=== PATIENT | male | born 1975 | race African-American/Black ===

== ENCOUNTER 2022-04-11 07:54 | Inpatient (IN) | payer OTHER ==
[2022-04-11] VITALS (19 sets, daily range): BP systolic 106–145; BP diastolic 67–95
[~2022-04-11] VITALS: Ht 172.7 cm; Wt 83.0 kg
--- NOTE | 2022-04-11 08:05 | NUR ---
PT ESCORTED VIA EMS STRETCHER TO ROOM 9 FOR EVAL OF ABD PAIN
[2022-04-11 08:17] LABS: HEMATOCRIT 49.9 % (39.0-50.0); HEMOGLOBIN 16.5 g/dl (14.0-18.0); IMMATURE GRANULOCYTES 0.1 % (0.0-5.0); MEAN CELL VOLUME 89.9 fL CALC (80.0-100.0); MEAN CORPUSCULAR HGB 29.7 pG CALC (26.0-32.0); MEAN CORPUSCULAR HGB CONC 33.1 g/dL CAL (32.0-36.0); NEUT# 8.23 thou/uL (1.82-7.42); RED BLOOD COUNT 5.55 mill/uL (4.70-6.10); RED CELL DISTRI WIDTH 12.6 % (11.5-15.5)
[2022-04-11 08:28] LABS: ALBUMIN 4.9 g/dL (3.2-5.0); ALKALINE PHOSPHATASE 78 u/l (38-126); ANION GAP 16 (6-22 (CALC)); BILIRUBIN, TOTAL 0.7 mg/dL (0.0-1.4); BUN 23 mg/dL (9-20); BUN/CREATININE RATIO 19 (12-20 (CALC)); CARBON DIOXIDE 25 mmol/l (22-30); CHLORIDE 104 mmol/l (95-108); CREATININE 1.2 mg/dL (0.7-1.3); GFR FOR AFR.AMER. > 60 ML/MIN (>=60 (CALC)); GFR OTHER RACES > 60 ML/MIN (>=60 (CALC)); LIPASE 58 u/l (23-300); POTASSIUM 4.6 mmol/l (3.5-5.1); SGOT/AST 20 u/l (17-59); SODIUM 139 mmol/l (137-146); TOTAL PROTEIN 7.8 g/dL (6.3-8.2)
--- NOTE | 2022-04-11 09:54 | NUR ---
Reassessment of patient completed. No distress noted.
--- NOTE | 2022-04-11 10:36 | NUR ---
REPORT PROVIDED BY ER NURSE. PT RESTING IN LOW FOWLERS POSITION. ASSESSMENT AND VS COMPLETED.HEART RHYTHM NORMAL TELE IN PLACE. RESPIRATIONS EVEN AND UNLABORED. BOWEL SOUNDS HYPOACTIVE. PT STATES ABDOMEN TENDER. PAIN MEDICATIONS DID HELP. PT REQUESTED ICE CHIPS . CALLED DR. BRADLEY . FOR VERIFICATION. ICE CHIPS PROVIDED. IV SITE RAC PATENT INFUSING WITH [id number] . EMS SITE. NPO DIET. PT DENIES OPEN WOUNDS. ALL SAFETY PRECAUTIONS IN PLACE WITH CALL LIGHT IN REACH. NICOLE IN ROOM AT PT BEDSIDE.
--- NOTE | 2022-04-11 10:37 | NUR ---
BEDSIDE REPORT GIVEN TO BECKY BERNAL
--- NOTE | 2022-04-11 12:00 | NUR ---
NG TUBE INSERTED BY DR BRADLEY PT TO HAVE PROCEDURE DONE. ALL SAFETY PRECAUTIONS IN PLACE.
--- NOTE | 2022-04-11 13:41 | NUR ---
PT LEFT FLOOR VIA STRETCHER FOR OR PROCEDURE. CONSENT OBTAINED.
--- NOTE | 2022-04-11 16:37 | NUR ---
PT YET TO ARRIVE FROM OR
--- NOTE | 2022-04-11 18:14 | NUR ---
PT RETURNED FROM OR VIA STRECTCHER . PT AWAKE NO SIGNS OF DISTRESS. ASSESSMENT AND POST OP VITAL SIGNS STARTED. HEART RHYTHM NORMAL WITH TELE IN PLACE. RESPIRATIONS EVEN AND UNLABORED.ON 2L OXYGEN BOWEL SOUNDS UNABLE TO ASSESS DUE TO ABD DRESSING IN PLACE CDI. PT NPO.ICE CHIPS ONLY. IV SITE TO RAC 18G INFUSING WITH LRS . TO DISCONTINUE. SCDS IN PLACE. URINARY CATHER 16F. IN PLACE NOTED. NG TUBE IN PLACE . ZOSYN TO BE PROVIDED.
--- NOTE | 2022-04-11 19:50 | NUR ---
PATIENT IN BED AWAKE BREATHING EVEN AND UNLABORED. PATIENT A&O X3 ABLE TO MAKE NEED KNOW. PATIENT ACCOMPANIED BY GUARDS AND HAND CUFF TO BED. PATIEND HAS A NG TUBE ON LCS, GREEN DRAINAGE NOTED. PT HAS A 18G IV TO RAC PATENT AND FLUSHING WELL. PATENT HAS A BENITEZ CATHETER 16FR SMALL AMOUNT OF URINE NOTED. ASSESSMENT COMPLETED. ABD DRESSING IN PLACE AND WITH A BINBER. SCD IN PLACE. CONTINUE TO MONITOR.
[2022-04-12] VITALS (7 sets, daily range): BP systolic 115–136; BP diastolic 57–72
--- NOTE | 2022-04-12 00:50 | NUR ---
PATINET IN BED RESTING WITH EYES CLSED BREATHING EVEN AND UNLABORED. PATIENT ACCOPANIED BY GUARDS, AND MARLENE CUFF TO BED. PATIENT REPORT PAIN TO ABD 5/10, PATIENT MEDICATED PER MAR. CALL LIGHT IN REACH BED INLOWEST POSITION. CONTINUE TO MONITOR.
--- NOTE | 2022-04-12 04:20 | NUR ---
PATIENT IN BED RESTING WITH EYES CLOSED BREATHING EVEN AND UNLABORED. PATIENT ACCOMPANIED BY GUARDS AND HAND CUFF TO BED. PATIENT REPORT ABDOMINAL PAIN /. ICE PACK APPLYED. CALL LIGHT IN REACH. AND BED IN LOWEST POSITION. CONTINUE TO MINITOR.
[2022-04-12 05:01] LABS: URINE BILIRUBIN - DIPSTICK NEGATIVE (NEGATIVE); URINE BLOOD DIPSTICK SMALL (NEGATIVE); URINE COLOR YELLOW; URINE GLUCOSE - DIPSTICK NEGATIVE (NEGATIVE); URINE KETONE TRACE mg/dL (NEGATIVE); URINE LEUK ESTERASE NEGATIVE (NEGATIVE); URINE PH 5.5 (4.5-8.0); URINE PROTEIN - DIPSTICK TRACE mg/dL (NEG-TRACE); URINE SPECIFIC GRAVITY >=1.030; URINE UROBILINOGEN - DIPSTICK 0.2 E.U./dL (0.2)
[2022-04-12 05:05] LABS: URINE NITRITE - DIPSTICK NEGATIVE (Negative)
[2022-04-12 05:07] LABS: HEMOGLOBIN 15.4 g/dl (14.0-18.0); MEAN CELL VOLUME 91.4 fL CALC (80.0-100.0); MEAN CORPUSCULAR HGB 29.3 pG CALC (26.0-32.0); MEAN CORPUSCULAR HGB CONC 32.1 g/dL CAL (32.0-36.0); NEUT# 3.17 thou/uL (1.82-7.42); RED BLOOD COUNT 5.25 mill/uL (4.70-6.10)
[2022-04-12 05:19] LABS: URINE MUCUS FEW hpf (NONE-FEW); URINE SQUAMOUS EPITHELIAL CELL FEW EPI/hpf (0-FEW)
[2022-04-12 05:30] LABS: ALKALINE PHOSPHATASE 50 u/l (38-126); ANION GAP 10 (6-22 (CALC)); BILIRUBIN, TOTAL 0.8 mg/dL (0.0-1.4); BUN 20 mg/dL (9-20); BUN/CREATININE RATIO 15 (12-20 (CALC)); CARBON DIOXIDE 24 mmol/l (22-30); CHLORIDE 108 mmol/l (95-108); CREATININE 1.3 mg/dL (0.7-1.3); GFR FOR AFR.AMER. > 60 ML/MIN (>=60 (CALC)); GFR OTHER RACES 59 ML/MIN (>=60 (CALC)); POTASSIUM 4.5 mmol/l (3.5-5.1); SGOT/AST 20 u/l (17-59); SODIUM 137 mmol/l (137-146)
[2022-04-12 05:39] LABS: ALBUMIN 3.2 g/dL (3.2-5.0); TOTAL PROTEIN 5.6 g/dL (6.3-8.2)
--- NOTE | 2022-04-12 07:00 | NUR ---
PT REPORT RECIEVED FROM COMPUTING TUTOR
--- NOTE | 2022-04-12 08:40 | NUR ---
PT RESTING IN LOW FOWLERS POSITION. ASSESSMENT AND VS COMPLETED. A/OX3 HEART RHYTHM NORMAL . RESPIRAITONS UNLABORED. BOWEL SOUNDS HYPOACTIVE. PT NPO ONLY ICE CHIPS . NO PAIN MED ADMINISTED. IV SITE NOTED TO BE CHANGED. ABD DRESSING CDI. 450 NG OUTPUT . PT DENIES ADDITIONAL NEEDS OTHER THAN ICE CHIPS .
--- NOTE | 2022-04-12 12:45 | NUR ---
PT IV DUE TO BE CHANGED . ALL SAFETY PRECAUTIONS IN PLACE PT ZOSYN TO BE GIVEN AFTER IV CHANGED
--- NOTE | 2022-04-12 14:56 | NUR ---
PT RESTING IN HIGH FOWLERS POSITION PT ABLE TO TOLERATE A FEW STEPS PT ABLE TO USE IS . PT DENIES PAIN MEDICATION AT THE MOMENT ALL SAFETY PRECAUTIONS IN PLACE.
--- NOTE | 2022-04-12 16:08 | NUR ---
PT RESTING IN SEMI FOWLERS POSITION. RESPIRATIONS EVEN UNLABORED. PT DENIES ADDITONAL NEEDS AT THE TIME.
--- NOTE | 2022-04-12 20:45 | NUR ---
PATINET IN BED WATCHING TV RESPIRATION EVEN AND UNLABORED. PATIENT ACCOMPANIED BY GUARDS AND HAND CUFF TO BED. PATIENT REPORT ABD DISCOMFORT. ASSESMENT COMPLETED. PATIENT MOVE TO ROOM 269 DUE TO AC MALFUNCION. PATIENT NG TUBE GREEN DRAINAGE NOTED. PATIENT HAS A BENITEZ CATHETER DRAINAGING WELL. CALL LIGHT IN REACH AND BED IIN LOWEST POSITION. CONTINUE TO MONITOR.
[2022-04-13] VITALS (7 sets, daily range): BP systolic 118–147; BP diastolic 76–99
--- NOTE | 2022-04-13 00:20 | NUR ---
PATIENT IN BED RESTING BREATHING EVEN AND UNLABORED. TEMP OF 101 NOTED AND ELEVETED PULSE [address] YEUNG NOTIFIED AND ORDER NS 1000 ML/H. PATIENT MEDICATED FOR PAIN. CALL LIGHT IN REACH BED IN LOWEST POSITION.
--- NOTE | 2022-04-13 04:26 | NUR ---
PATIENT IN BED RESTING WITH EYES CLOSED BREATHING EVEN AN UNLABORED. NO S/S OF DISTRESS NOTED. CALL LIGHT IN REACH. BED IN LOWEST POSITION.
--- NOTE | 2022-04-13 08:15 | NUR ---
PT RESTING WITH EYES CLOSED; A&OX3. EVEN AND UNLABORED RESPIRATIONS; CLEAR LUNG SOUNDS UPON AUSCULTATION. NG TUBE IN PLACE; LOW CONTINUOUS SUCTION WITH GREEN DRAINAGE NOTED. HYPOACTIVE BOWEL SOUNDS X 4 QUADRANTS. ABD DRESSING; CDI, ABDOMINAL BINDER IN PLACE. BENITEZ IN PLACE; TO GRAVITY WITH EVANGELINA, CLEAR, URINE. IV SITE HEALTHY AND PATENT. ICE CHIPS PROVIDED PER PT'S REQUEST. SAFETY PRECAUTIONS IN PLACE WITH CALL LIGHT IN REACH.
--- NOTE | 2022-04-13 12:00 | NUR ---
PT IN BED. ABD DRESSING CHANGED AT THIS TIME; MIDLINE INCISION WITH 22 PORTIA, PLUS 2 PORTIA ON LEFT UPPER QUADRANT, NO DRAINAGE. ABDOMINAL BINDER IN PLACE. NG TUBE IN PLACE; LOW CONTINUOUS SUCTION, WITH GREEN DRAINAGE. SAFETY PRECAUTIONS IN PLACE WITH CALL LIGHT IN REACH.
--- NOTE | 2022-04-13 17:03 | NUR ---
REPLACED TAPE THAT WAS HOLDING NG TUBE TO NOSE, SINCE IT WAS COMING OFF. NG TUBE IN PLACE; LOW CONTINUOUS SUCTION WITH GREEN DRAINAGE. ICE CHIPS PROVIDED PER PT'S REQUEST. NO DISTRESS NOTED. PT DENIES PAIN AT THE MOMENT. SAFETY PRECAUTIONS IN PLACE WITH CALL LIGHT IN REACH.
--- NOTE | 2022-04-13 17:17 | NUR ---
PT'S TEMP 99.7; DR BRADLEY NOTIFIED, NO NEW ORDERS AT THE MOMENT.
--- NOTE | 2022-04-13 19:10 | NUR ---
REPORT RECEIVED FROM Gerson MATHEWS RN.
--- NOTE | 2022-04-13 21:00 | NUR ---
PATIENT ASSEMENT COMPLETED AT THIS TIME. PATIENT DRESSING REMAIS CDI. NG TUBE IN RIGHT NARE ON LOW CONTINOUS, CURRENTLY 125 CC. BENITEZ DRAINING TO GRAVITY, GUARDS AT BEDSIDE. CALL LIGHT AND BEDSIDE TABLE WITHIN REACH.
[2022-04-14] VITALS (7 sets, daily range): BP systolic 122–164; BP diastolic 81–111
--- NOTE | 2022-04-14 | NUR ---
GRACE TMEDICATED WITH SCHEULED TORADOL
--- NOTE | 2022-04-14 05:00 | NUR ---
PATIENT STATES HE PASSED GAS AT 236
--- NOTE | 2022-04-14 05:28 | NUR ---
GUARDS PERFORMING SHIFT CHANGE AT THIS TIME.
--- NOTE | 2022-04-14 05:28 | NUR ---
PATIENT ENCOURGAED TO WALK AND MOVE AROUND, STATES HE IS IN TOO MUCH PAIN.
[2022-04-14 05:30] LABS: HEMATOCRIT 43.1 % (39.0-50.0); HEMOGLOBIN 13.9 g/dl (14.0-18.0); IMMATURE GRANULOCYTES 0.2 % (0.0-5.0); MEAN CELL VOLUME 92.1 fL CALC (80.0-100.0); MEAN CORPUSCULAR HGB 29.7 pG CALC (26.0-32.0); MEAN CORPUSCULAR HGB CONC 32.3 g/dL CAL (32.0-36.0); NEUT# 4.1 thou/uL (1.82-7.42); RED BLOOD COUNT 4.68 mill/uL (4.70-6.10); RED CELL DISTRI WIDTH 13.1 % (11.5-15.5)
[2022-04-14 05:39] LABS: ANION GAP 8 (6-22 (CALC)); BUN 21 mg/dL (9-20); BUN/CREATININE RATIO 15 (12-20 (CALC)); CARBON DIOXIDE 28 mmol/l (22-30); CHLORIDE 105 mmol/l (95-108); CREATININE 1.5 mg/dL (0.7-1.3); GFR FOR AFR.AMER. > 60 ML/MIN (>=60 (CALC)); GFR OTHER RACES 50 ML/MIN (>=60 (CALC)); SODIUM 138 mmol/l (137-146)
--- NOTE | 2022-04-14 06:01 | NUR ---
PATIENT NG TUBE BECOME DISLODGED, RE INSERTED NG TUBE. 125CC AT BEGINING OF SHIFT CURRENTYTLY 700 CC
--- NOTE | 2022-04-14 06:50 | NUR ---
RECEIVED REPORT FROM BECKY FAUSTIN.
--- NOTE | 2022-04-14 08:20 | NUR ---
PT SITTING ON LOW DUNN'S; A&O X3. EVEN AND UNLABORED RESPIRTATIONS. TELEMETRY IN PLACE WITH LAST READING SR-90. IV SITE HEALTHY AND PATENT. ACTIVE BOWEL SOUNDS X4 QUADRANTS. ABDOMINAL DRESSING CDI. ABDOMINAL BINDER IN PLACE. SCD'S IN PLACE. NO DISTRESS NOTED. THERE ARE TWO GUARDS AT PT'S BEDSIDE. PT WITH SHACKLES CHAIN FROM FEET TO BED. SAFETY PRECAUTIONS IN PLACE WITH CALL LIGHT IN REACH.
--- NOTE | 2022-04-14 12:35 | NUR ---
PT'S DIET CHANGED FROM NPO TO CLEAR LIQUID DIET; PT INFORMED OF SAME. PT SITTING ON BED; HAVING LUNCH. NO DISTRESS OR PAIN NOTED. SAFETY PRECAUTIONS IN PLACE WITH CALL LIGHT IN REACH.
--- NOTE | 2022-04-14 13:41 | NUR ---
PT ASSITED TO BATHROOM; MODERATE BM, FORMED, BROWN STOOL. PT BACK IN BED. SAFETY PRECAUTIONS IN PLACE WITH CALL LIGHT IN REACH.
--- NOTE | 2022-04-14 17:26 | NUR ---
PT ASSISTED TO BATHROOM. PT BACK IN BED. NEW BAG OF IV FLUIDS HANGING. CHANGED BINDER. SAFETY PRECAUTIONS IN PLACE WITH CALL LIGHT IN PLACE.
--- NOTE | 2022-04-14 18:30 | NUR ---
AIDE INFORMED SPECIALTY FINISHING UTILITY PERSON, PT HAD AN EMESIS X1 EPISODE; DR. TENA NOTIFIED OF SAME. DR. BRADLEY ORDERED TO UNCLAMP NG TUBE AND PUT IT BACK TO LOW CONTINUOUS SUCTION, AND ADMINISTER ZOFRAN FOR NAUSEA.
--- NOTE | 2022-04-14 18:38 | NUR ---
PT SITTING ON BED; HOLDING EMESIS BAG WITH [address] CONTENTS. EXPLAINED PT DR'S ORDERS TO UNCLAMP NG TUBE AND LOW SUCTION. COMMUNICATIONS BILLING ANALYST NOTED NG TUBE ON PT'S RIGHT HAND; PT ADMITTED HE PULL NG TUBE OUT BECAUSE IT WAS BOTHERING HIM. DR. BRADLEY NOTIFIED OF SAME, AND THAT PT'S TEMP WAS 100.4; DR ORDERED TO GIVE PT ICE CHIPS AND ADMINISTER TYLENOL 650 MG PO Q6HR PRN FOR FEVER. ADMINISTERED ZOFRAN PER EMAR. SAFETY PRECAUTIONS IN PLACE WITH CALL LIGHT IN REACH.
--- NOTE | 2022-04-14 19:25 | NUR ---
REPORT RECEIVED FROM Gerson MATHEWS LPN
--- NOTE | 2022-04-14 20:30 | NUR ---
EDUCATED PATIENT ON IMPORTANCE OF WALKING SUGGESTED TO WALK OUT IN THW HALLWAYS, GUARDS AT BEDSIDE STATED THAT IF HE WERE TO HAVE TO LEAVE THE ROOM HE WOULD HAVE TO GET PERMISION GRANTED FROM [employer].
--- NOTE | 2022-04-14 22:21 | NUR ---
HR UP TO 125, VITALS TAKEN AT THIS TIME. PATIENT TO BE MEDICATED FOR 100.1 TEMPERATURE.
--- NOTE | 2022-04-14 22:53 | NUR ---
EMESIS X2 NOTED. NO MORE THAN 200 CC IN BOTH BAGS COMBINED.
--- NOTE | 2022-04-14 22:58 | NUR ---
NOTIFIED DR BRADLEY. PER REINSERT NG TUBE AND 1000 CC NORMAL SALINE BOLUS.
--- NOTE | 2022-04-14 23:30 | NUR ---
NG TUBE PLACED AT THIS TIME, GASTRIC CONTENTS ASPIRATED, PLACED TO LOW CONTINOUS SUCCION. 450 CC OUT AT THIS TIME.
[2022-04-15 00:24] VITALS: BP 126/67
--- NOTE | 2022-04-15 00:42 | NUR ---
NEW CANNISTER, PREVIOUS CANNIESTER FILLED TO BRIM AT 1200 CC
--- NOTE | 2022-04-15 01:05 | NUR ---
NG CLAMP ATTEMPTED AT THIS TIME. PATIENT UNABLE TO TOLERATE MORE THAN 1 MINUTES. RECCONECTED TO LOW SUCCION 100CC OUT AND CONTINUES TO DRAIN TO SUCCION.
--- NOTE | 2022-04-15 01:35 | NUR ---
NG TUBE CONTINUES TO LOW SUCCION, 750CC NOTED AT THIS TIME
--- NOTE | 2022-04-15 01:48 | NUR ---
NEW BAG OF FLUIDS HUNG AT THIS TIME, SEE EMAR.
--- NOTE | 2022-04-15 03:32 | NUR ---
PATIENT WALKED APPROXIMATELTY 3 TIMES AROUND BED, ABOUT 30 FEET. STILL RELUCTANT TO WALK IN HALLWAY.
--- NOTE | 2022-04-15 04:00 | NUR ---
NG TUBE CLAMPED AT THIS TIME
[2022-04-15 04:49] VITALS: BP 121/86
[2022-04-15 06:07] VITALS: BP 121/80
[2022-04-15 06:09] LABS: HEMATOCRIT 41.8 % (39.0-50.0); HEMOGLOBIN 13.3 g/dl (14.0-18.0); MEAN CELL VOLUME 92.1 fL CALC (80.0-100.0); MEAN CORPUSCULAR HGB 29.3 pG CALC (26.0-32.0); MEAN CORPUSCULAR HGB CONC 31.8 g/dL CAL (32.0-36.0); RED BLOOD COUNT 4.54 mill/uL (4.70-6.10); RED CELL DISTRI WIDTH 13.4 % (11.5-15.5)
[2022-04-15 06:26] LABS: ANION GAP 10 (6-22 (CALC)); BUN 17 mg/dL (9-20); BUN/CREATININE RATIO 12 (12-20 (CALC)); CARBON DIOXIDE 24 mmol/l (22-30); CHLORIDE 108 mmol/l (95-108); CREATININE 1.5 mg/dL (0.7-1.3); GFR FOR AFR.AMER. > 60 ML/MIN (>=60 (CALC)); GFR OTHER RACES 50 ML/MIN (>=60 (CALC)); MAGNESIUM 2.3 mg/dL (1.6-2.3); POTASSIUM 4.1 mmol/l (3.5-5.1); SODIUM 138 mmol/l (137-146)
[2022-04-15 06:27] VITALS: BP 121/80
--- NOTE | 2022-04-15 07:00 | NUR ---
NG TUBE REMAINS CLAMPED
--- NOTE | 2022-04-15 08:01 | NUR ---
SHIFT CHANGE REPORT, PT AWAKE ALERT AND ORIENTED RESTING IN BED, DENIES PAIN OR NAUSEA, TELE MONITOR IN PLACE, NIG TUBE IN PLACE TO RN CLAMPED, DRESSING TO ABD REMOVED WITH PURULENT DRAINAGE TO DISTAL END, PORTIA INTACT, NEW DSD APPLIED AND SECURED WITH PAPER TAPE, BENITEZ IN PLACE WITH PINK URINE, RE-EDUCATED ON USE OF IS AND PT DEMONSTRATED CORRECT USE AFTER INACCURATE USAGE. CALL ROSALES IN REACH AND BED LOCKED IN LOWEST POSITION, GUARDS X [address]
--- NOTE | 2022-04-15 11:15 | NUR ---
MIDLINE INCISION TO ABD WITH BLOODY PURULENT DRAINAGE AT THIS TIME, BOTH MIDDLE AND DISTAL END OF INCISION WITH COPIOUS AMT DRAINAGE TO MIDDLE AND MODERATE AMOUNT TO DISTAL, DRESSING CHANGED AGAIN FOR SECOND TIME THIS AM, WILL CONTACT SURGEON TO NOTIFY OF CONDITION.
--- NOTE | 2022-04-15 12:16 | NUR ---
DR BRADLEY HERE ROUNDING, ADVANCED NG FURTHER IN STOMACH AFTER REVIEWING IMAGING, ASSESSED INCISION AND REMOVED 2 PORTIA, PACKED SITE WITH DRY CHARO THEN NURSE REAPPIED DSD AND SECURED WITH PAPER TAPE ORDERED. MD ADVISED NOT TO REMOVE BENITEZ CATHETER YET.
[2022-04-15 15:52] VITALS: BP 140/78
--- NOTE | 2022-04-15 17:00 | NUR ---
DRESSING TO ABD CHANGED PER ORDER @ 1700, PT TOLERATED WELL.
--- NOTE | 2022-04-15 18:07 | NUR ---
PT C/O SEVERE ABD PAIN, COUGHING AND HEAVING, NURSE OFFERED ANTIEMETIC AND ANALGESIC MED BUT ON ARRIVAL TO ROOM WITH MED PT REPORTED HE HAD SOME PHLEGM IN HIS THROAT WHICH HE WAS ABLE TO EXPECTORATE AND WAS FEELING BETTER; THEREFORE REFUSED MEDS, WILL CONTINUE TO MONITOR.
--- NOTE | 2022-04-15 19:00 | NUR ---
ASSISTED OUT OF BED TO AMBULATED IN ROOM. NG TUBE CLAMPED. ACTIVITY TOLERATED WELL DENIES NAUSEA OR VOMITING. NO SOB NOTED ABD WITH BINDER ON INTACT.
[2022-04-15 19:09] VITALS: BP 137/83
--- NOTE | 2022-04-15 21:35 | NUR ---
COMPLAIN OF DULL ACHING ABDOMINAL PAIN. NG TUBE DRAINAGE COFFEE COLORED 450 CC NOTED IN CANISTER. MEDICATED WITH DILAUDID 1 MG SANCHEZ 7 OUT OF 10 ON PAIN SCALE ZOFRAN 4MG GIVEN TO RELIEVE NAUSEA.
[2022-04-16] VITALS (9 sets, daily range): BP systolic 113–147; BP diastolic 71–94
--- NOTE | 2022-04-16 04:13 | NUR ---
REMEDICATED WITH DILAUDED FOR 8 OUT OF 10 PAIN. ABDOMENN DRSG DRY AND INTACT. RESPIRATIONS EVEN AND UNLABORED. TOTAL OF 1100 CC NG TUBE DRAINAGE RECORDED FOR THIS SHIFT.
[2022-04-16 05:30] LABS: HEMATOCRIT 38.6 % (39.0-50.0); HEMOGLOBIN 12.6 g/dl (14.0-18.0); IMMATURE GRANULOCYTES 0.5 % (0.0-5.0); MEAN CELL VOLUME 90.2 fL CALC (80.0-100.0); MEAN CORPUSCULAR HGB 29.4 pG CALC (26.0-32.0); MEAN CORPUSCULAR HGB CONC 32.6 g/dL CAL (32.0-36.0); NEUT# 4.43 thou/uL (1.82-7.42); RED BLOOD COUNT 4.28 mill/uL (4.70-6.10); RED CELL DISTRI WIDTH 13.3 % (11.5-15.5)
[2022-04-16 05:52] LABS: ANION GAP 8 (6-22 (CALC)); BUN 15 mg/dL (9-20); BUN/CREATININE RATIO 11 (12-20 (CALC)); CARBON DIOXIDE 24 mmol/l (22-30); CHLORIDE 110 mmol/l (95-108); CREATININE 1.4 mg/dL (0.7-1.3); GFR FOR AFR.AMER. > 60 ML/MIN (>=60 (CALC)); GFR OTHER RACES 55 ML/MIN (>=60 (CALC)); POTASSIUM 4.2 mmol/l (3.5-5.1); SODIUM 138 mmol/l (137-146)
--- NOTE | 2022-04-16 05:57 | NUR ---
RESTING QUIETLY IN BED WITH EYES CLOSED NO DISTRESS NOTED. RESPIRATIONS EVEN AND UNLABORED CORECCTION OFFICERS AT BEDSIDE SHACKLES IN PLACE.
--- NOTE | 2022-04-16 07:00 | NUR ---
RECIEVE REPORT FROM FATOUMATA PENA.
--- NOTE | 2022-04-16 07:00 | NUR ---
REIVE REPORT FROM FATOUMATA PENA.
--- NOTE | 2022-04-16 08:00 | NUR ---
PATIENT ALERT AND ORIENTED X3. PATIENT REFER PAIN AT THIS TIME. PAIN MANAGEMENT WITH HER THIS MORNING. PATIENT IS EDUCATED ABOUD MEDICATIONS AND NURSING PLAN. PATIENT REFER UNDERSTAND.
--- NOTE | 2022-04-16 09:00 | NUR ---
CHANGED ABDOMINAL DRESSING. CLEAN THE NOSE AREA. CHANGED DRESSING OVER NOSE. PATIENT TOLERATED WELL.
--- NOTE | 2022-04-16 12:00 | NUR ---
PATIENT RESTING IN BED STABLE AT THIS TIME.
--- NOTE | 2022-04-16 16:40 | NUR ---
PATIENT STABLE RESTING IN BED.
--- NOTE | 2022-04-16 19:00 | NUR ---
REPORT RECEIVED FROM Willie CORDERO RN
--- NOTE | 2022-04-16 19:49 | NUR ---
PATIENT UNCLAMPPED, AND UP TO THE BATHROOM WITH ASSITANCE PROVIDED BY Lolita SOLER CNA.
[2022-04-17] VITALS (8 sets, daily range): BP systolic 125–155; BP diastolic 76–93
--- NOTE | 2022-04-17 00:35 | NUR ---
PATIENT UP TO THE BATHROOM AT THIS TIME. BM PROVICED. ANTIBIOTIC HUNG AT THIS TIME. PATIENT MEDICATED FOR PAIN 05/03. NG TUBE TO LOW SUCCION, ABOUT 600CC OF CLEAR GREEN LIQUID.
--- NOTE | 2022-04-17 04:00 | NUR ---
GENEVA REQUESTING ICE CHIPS, ICE CHIPS PROVIDED PER REQUEST. CALL LIGHT WITHIN REACH. NG TUBE REMAINS INTACT TO LOW SUCCION.
--- NOTE | 2022-04-17 07:14 | NUR ---
RECEIVE REPORT FROM ROXIE PENA
--- NOTE | 2022-04-17 08:00 | NUR ---
PATIENT ALERT AND ORIENTED X3. REFER PAIN AT THIS TIME. MEDS FOR PAIN DONE. EXPLAIN PT NURSING PLAN FOR TODY HE REFER UNDERSTAND.
--- NOTE | 2022-04-17 08:00 | NUR ---
PATIENT ALERT AND ORIENTED X3. PATIENT REFER PAIN. MEDICATIONS FOR PAIN IS READY TO GIVED. EXPLAIN THE PATIENT NURSONG PLAN FOR TODAY AND MEDICATIONS. PATIENT REFER UNDERSTAND.
--- NOTE | 2022-04-17 09:49 | NUR ---
DOCTOR MIRNA SEE THE PATIENT EXPLAIN THE PLAN FOR THE NEXT DAYS. I CHANGED SURGICAL DRESSING IN THE ABDOMEN. EXPLAIN TO THE PATIENT THE NURSING PLAN AN MEDICATIONS FOR TODAY. PATIENT REFER UNDERSTAND.
--- NOTE | 2022-04-17 12:07 | NUR ---
PATIENT RESTING IN BED, STABLE AT THIS TIME.
--- NOTE | 2022-04-17 15:00 | NUR ---
REPORT RECIVED FROM RN DAYSHIFT PT RESTING IN BED WITH GUARDS AT BEDSIDE. IV INTAVT INFUSING IVF PER EMAR. STATES NO PAIN AT THIS TIME. NG TUBE IN PLACE, SUCTIONING. FALL/SAFTEY PRECAUTION IN PLACE. CALL LIGHT WITHIN REACH
--- NOTE | 2022-04-17 17:45 | NUR ---
PT RESTING IN BED. ASSISTED WITH REPOSTIONING. STATES NO PAIN. IVF INFUSING PER EMAR. IV INTACT. FALL/SAFTEY PRECAUTION IN PLACE. CALL LIGHT WITHIN REACH.
--- NOTE | 2022-04-17 20:00 | NUR ---
PT IN BED, EMPTIED NG TUBE CANISTER, PT STATES HE IS IN PAIN AND NAUSOUS, BROUGHT PT PAIN MED BUT NOT TIME FOR NAUSEA MEDS, BED IN LOW POSITION, CALL LIGHT IN REACH
[2022-04-18] VITALS (10 sets, daily range): BP systolic 124–157; BP diastolic 82–99
--- NOTE | 2022-04-18 | NUR ---
PT IN BED NO DISTRESS NOTED, EMPTIED NG TUBE CANISTER, PT STATES HE IS FEELING MUCH BETTER, BED IN LOW POSITION, CALL LIGHT IN REACH
[2022-04-18 04:59] LABS: HEMATOCRIT 38.2 % (39.0-50.0); HEMOGLOBIN 12.3 g/dl (14.0-18.0); IMMATURE GRANULOCYTES 0.7 % (0.0-5.0); MEAN CELL VOLUME 90.3 fL CALC (80.0-100.0); MEAN CORPUSCULAR HGB 29.1 pG CALC (26.0-32.0); MEAN CORPUSCULAR HGB CONC 32.2 g/dL CAL (32.0-36.0); NEUT# 5.45 thou/uL (1.82-7.42); RED BLOOD COUNT 4.23 mill/uL (4.70-6.10); RED CELL DISTRI WIDTH 13.1 % (11.5-15.5)
[2022-04-18 05:23] LABS: ANION GAP 12 (6-22 (CALC)); BUN 12 mg/dL (9-20); BUN/CREATININE RATIO 8 (12-20 (CALC)); CARBON DIOXIDE 26 mmol/l (22-30); CHLORIDE 106 mmol/l (95-108); CREATININE 1.4 mg/dL (0.7-1.3); GFR FOR AFR.AMER. > 60 ML/MIN (>=60 (CALC)); GFR OTHER RACES 55 ML/MIN (>=60 (CALC)); POTASSIUM 3.9 mmol/l (3.5-5.1); SODIUM 140 mmol/l (137-146)
--- NOTE | 2022-04-18 08:00 | NUR ---
PATIENT AWAKE, ALERT, NO SIGNS OR SYMPTOMS OF DISTRESS NOTED OR VOICED. NG TO LIS.
--- NOTE | 2022-04-18 11:52 | NUR ---
RESTING QUIETLY IN BED, IV FLUIDS DISCONTINUED, NG REMOVED, REGLAN STARTED, REGULAR DIET. NO SIGNS OR SYMPTOMS OF DISTRESS NOTED OR VOICED.
[2022-04-19] VITALS (9 sets, daily range): BP systolic 124–156; BP diastolic 79–98
--- NOTE | 2022-04-19 08:00 | NUR ---
AWAKE, ALERT, NO SIGNS OR SYMPTOMS OF DISTRESS NOTED OR VOICED, ON REGULAR DIET AND TOLERATING, BENITEZ TO BE RMOVED TODAY.
--- NOTE | 2022-04-19 12:00 | NUR ---
RESTING QUIETLY IN BED, NO SIGNS OR SYMPTOMS OF DISTRESS NOTED OR VOICED, BENITEZ REMOVED AT 1100.
--- NOTE | 2022-04-19 12:56 | NUR ---
PATIENT VOIDED ON OWN, POST VOID RESIDUAL IS 0.
--- NOTE | 2022-04-19 16:00 | NUR ---
RESTING QUIETLY IN BED, NO SIGNS OR SYMPTOMS OF DISTRESS NOTED OR VOICED. MEDICATED FOR PAIN WITH RELIEF, RECEIVED PHONE CALL FROM [facility] NURSE [facility] ASKING FOR STATUS UPDATE, INFORMATION GIVEN.
--- NOTE | 2022-04-19 20:00 | NUR ---
PT ALERT AND ORIENTED. DOES NOT LOOK TO BE IN ANY DISTRESS. ABOMONAL DRESSING LOOKS INTACT. PTS IV LOOKS TO INFULTRATED. OLD IV REMOVED AND NEW IV STARTED. VITAL SIGNS ARE WITHIN NORMAL LIMITS. CALL LIGHT WITHIN PTS REACH. WILL CONTINUE TO MONITOR CLOSELY.
[2022-04-20 00:56] VITALS: BP 144/87
--- NOTE | 2022-04-20 04:00 | NUR ---
0000 AND 0400 SHIFT REASSESSMENT- NO CHANGE IS PTS STATUS OVERNIGHT. ABDOMONAL DRESSING CHANGED THIS MORNING. PT RECEIVED PRN MEDICATION TO TOLERATE DRESSING CHANGE. VITAL SIGNS ARE WITHIN NORMAL LIMITS. PT BEING CLOSELY MONITORED.
[2022-04-20 04:28] VITALS: BP 134/84
--- NOTE | 2022-04-20 07:10 | NUR ---
SHIFT CHANGE REPORT, PT AWAKE ALERT AND ORIENTED RESTING IN BED, STATES HE IS FEELING MUCH BETTER TODAY, TELE MONITOR IN PLACE, SCD ON, SHACKLED TO BED, CALL ROSALES IN REACH AND BED LOCKED IN LOWEST POSITION. GUARDS X 2 IN ROOM.
[2022-04-20 07:22] VITALS: BP 120/78
[2022-04-20 09:10] LABS: HEMATOCRIT 40.4 % (39.0-50.0); HEMOGLOBIN 13.1 g/dl (14.0-18.0); MEAN CELL VOLUME 90.8 fL CALC (80.0-100.0); MEAN CORPUSCULAR HGB 29.4 pG CALC (26.0-32.0); MEAN CORPUSCULAR HGB CONC 32.4 g/dL CAL (32.0-36.0); RED BLOOD COUNT 4.45 mill/uL (4.70-6.10); RED CELL DISTRI WIDTH 12.8 % (11.5-15.5)
[2022-04-20] MEDS ORDERED: BACTRIM DS1 TAB PO (10:13)
[2022-04-20 10:32] VITALS: BP 132/83
--- NOTE | 2022-04-20 11:00 | NUR ---
DRESSING TO ABD CHANGED PER ORDER, PT TOLERATED WELL.
--- NOTE | 2022-04-20 12:46 | NUR ---
C/O EPIGASTRIC DISCOMFORT AND BLOATING AFTER EATING, CARRIE MARTY OFFERED REQUESTED.
--- NOTE | 2022-04-20 14:13 | NUR ---
REPORT CALLED TO NURSE OCASIO AT [facility].
== END 2022-04-20 14:20 | DRG 327 ==
LOC: ED 07:54 → ED-I 08:36 → ED 08:36 → ED-I 09:02 → ED 09:18 → MS2 09:19
PROVIDERS: Family Medicine; Hospitalist; ADMIT Surgery; ATTEND Surgery
PROC: 0DB80ZZ Excision of Small Intestine, Open Approach (ICD-10-PCS; principal; 2022-04-11)
PROC: 0DJ04ZZ Inspection of Upper Intestinal Tract, Percutaneous Endoscopic Approach (ICD-10-PCS; 2022-04-11)
PROC: 0DN80ZZ Release Small Intestine, Open Approach (ICD-10-PCS; 2022-04-11)
PROC: 0WQF0ZZ Repair Abdominal Wall, Open Approach (ICD-10-PCS; 2022-04-11)
PROC: 0T2BX0Z Change Drainage Device in Bladder, External Approach (ICD-10-PCS; 2022-04-11)
DX: K43.0 Incisional hernia with obstruction, without gangrene (principal); K56.7 Ileus, unspecified; T81.41XA Infection following a procedure, superficial incisional surgical site, initial encounter; T83.021A Displacement of indwelling urethral catheter, initial encounter; Y84.6 Urinary catheterization as the cause of abnormal reaction of the patient, or of later complication, without mention of misadventure at the time of the procedure; Y83.6 Removal of other organ (partial) (total) as the cause of abnormal reaction of the patient, or of later complication, without mention of misadventure at the time of the procedure
CPT/HCPCS: J0131; Q9967